=== PATIENT | female | born 1950 | race Caucasian/White ===

== ENCOUNTER 2019-07-24 21:56 | Emergency (ER) | payer OTHER ==
[2019-07-24] MEDS ORDERED: HYDROCORTISONE ACETATE 25MG SUPP PR ONE (23:21)
--- NOTE | 2019-07-24 23:40 | EDPHYS ---
Physician Documentation [facility] Name: Rosa Hernadez Age: 68 yrs Sex: Female : 1950 Arrival Date: 07/24/2019 Time: 22:01 Bed 6 Private MD: ED Physician Rashel Haddad HPI: 07/23 23:00 This 68 yrs old Female presents to ER via Ambulatory with complaints of cp Hemorrhoids. 23:00 The patient presents to the emergency department with pain in the rectal area, that is cp moderate. Onset: The symptoms/episode began/occurred this morning. Context: the patient patient reports history of internal hemorrhoids. Associate signs and symptoms: Pertinent negatives: abdominal pain, constipation, diarrhea, fever. The patient has not experienced similar symptoms in the past. Historical: - Allergies: 22:34 NKDA; lp1 - Home Meds: 22:34 lisinopril-hydrochlorothiazide 20-12.5 mg Oral tab 1 tab once daily [Active]; lp1 sertraline 50 mg oral tab 1 tab once daily [Active]; - PMHx: 22:34 Hypertension; lp1 - PSHx: 22:34 hip surgery; lp1 - Immunization history:: Adult Immunizations up to date. - Social history:: Smoking status: Patient denies any tobacco usage or history of. ROS: 23:05 Constitutional: Negative for chills, fever. cp 23:05 Eyes: Negative for injury, pain, redness, and discharge. cp 23:05 ENT: Negative for ear pain, sore throat, difficulty swallowing, difficulty handling secretions. 23:05 Cardiovascular: Negative for chest pain. 23:05 Respiratory: Negative for cough, shortness of breath. 23:05 Abdomen/GI: Positive for rectal pain, Negative for abdominal pain, vomiting, diarrhea, constipation. 23:05 : Negative for urinary symptoms. 23:05 All other systems are negative. Exam: 23:12 Constitutional: The patient appears in no acute distress, alert, awake, well developed, cp well nourished. 23:12 Cardiovascular: Rate: normal. cp 23:12 Respiratory: the patient does not display signs of respiratory distress, Respirations: normal, no use of accessory muscles, labored breathing, is not present. 23:12 Abdomen/GI: Inspection: abdomen appears normal, Palpation: abdomen is soft and non-tender, in all quadrants, Rectal exam: hemorrhoid(s), internal, with inflammation, with pain, prolapsed, the exam is chaperoned by the nurse. Vital Signs: 22:35 BP 109 / 87; Pulse 96; Resp 18; Temp 98.3(O); Pulse Ox 95% on R/A; Weight 92.53 kg (R); lp1 Height 5 ft. 5 in. (165.10 cm); Pain 7/10; 23:56 BP 121 / 68; Pulse 78; Resp 18; Pulse Ox 98% on R/A; ea 22:35 Body Mass Index 33.95 (92.53 kg, 165.10 cm) lp1 MDM: 22:41 Patient medically screened. cp 23:35 Differential diagnosis: hemorrhoids, fissure, abscess, prolapsed rectum. cp 23:38 Data reviewed: vital signs, nurses notes, I have discussed the patient's cp presentation/case with the attending Emergency Department Physician; and as a result, I will discharge patient. 23:38 Counseling: I had a detailed discussion with the patient and/or guardian regarding: the cp historical points, exam findings, and any diagnostic results supporting the discharge/admit diagnosis, the need for outpatient follow up, for definitive care, a general surgeon, to return to the emergency department if symptoms worsen or persist or if there are any questions or concerns that arise at home. 23:38 Response to treatment: the patient's symptoms have markedly improved after treatment, cp and as a result, I will discharge patient. Administered Medications: 23:22 Drug: Anusol-HC 25 mg 25 mg Route: MD; ea 23:57 Follow up: Response: No adverse reaction ea Disposition: 23:50 Chart complete. cp 07/24 03:41 Co-signature as Attending Physician, Rashel Haddad MD. pkl Disposition: 07/24/19 23:39 Discharged to Home. Impression: Other hemorrhoids - prolasped. - Condition is Stable. - Discharge Instructions: High-Fiber Diet, Hemorrhoids, Surgical Procedures for Hemorrhoids. - Prescriptions for Anusol- HC 25 mg Rectal Suppository - insert 1 suppository by RECTAL route every 12 hours As needed; 20 suppository. Miralax 17 gram/dose Oral - take 1 packet by ORAL route once daily dilute powder in 8 ounces of water or juice; 15 packet. - Medication Reconciliation Form, Thank You Letter, Antibiotic Education, Prescription Opioid Use form. - Follow up: Shai Olson MD; When: 07/27/2019; Reason: Recheck today's complaints. - Problem is new. - Symptoms have improved. Signatures: Rashel Haddad MD MD pkl Pena, Laura RN RN lp1 Deni Chu, PA PA Yaneth Martinez RN RN ea Corrections: (The following items were deleted from the chart) 07/23 23:04 23:02 This 68 yrs old Female presents to ER via Ambulatory with complaints of cp Hemorrhoids. cp 07/24 00:04 07/23 23:39 07/24/2019 23:39 Discharged to Home. Impression: Other hemorrhoids - ea prolasped. Condition is Stable. Forms are Medication Reconciliation Form, Thank You Letter, Antibiotic Education, Prescription Opioid Use. Follow up: Shai Olson; When: 07/27/2019; Reason: Recheck today's complaints. Problem is new. Symptoms have improved. cp 07/24 03:42 03:40 : cp cp
--- NOTE | 2019-07-24 23:40 | ER ---
Nurse's Notes [facility] Name: Rosa Hernadez Age: 68 yrs Sex: Female : 1950 Arrival Date: 07/24/2019 Time: 22:01 Bed 6 Private MD: Diagnosis: Other hemorrhoids-prolasped Presentation: 07/23 22:32 Chief complaint: Patient states: External hemorrhoid pain that began this morning; lp1 Attempted using suppositories and creams with no relief; States beginning to bleed. Coronavirus screen: Proceed with normal triage. Ebola Screen: No symptoms or risks identified at this time. Risk Assessment: Do you want to hurt yourself or someone else? Patient reports no desire to harm self or others. Onset of symptoms was July 24, 2019. 22:32 Method Of Arrival: Ambulatory lp1 22:32 Acuity: BERTHA 3 sg 22:35 Initial Sepsis Screen: Does the patient meet any 2 criteria? No. Patient's initial lp1 sepsis screen is negative. Does the patient have a suspected source of infection? No. Patient's initial sepsis screen is negative. Historical: - Allergies: 22:34 NKDA; lp1 - Home Meds: 22:34 lisinopril-hydrochlorothiazide 20-12.5 mg Oral tab 1 tab once daily [Active]; lp1 sertraline 50 mg oral tab 1 tab once daily [Active]; - PMHx: 22:34 Hypertension; lp1 - PSHx: 22:34 hip surgery; lp1 - Immunization history:: Adult Immunizations up to date. - Social history:: Smoking status: Patient denies any tobacco usage or history of. Screenin:34 Abuse screen: Denies threats or abuse. Denies injuries from another. Nutritional lp1 screening: No deficits noted. Tuberculosis screening: No symptoms or risk factors identified. Fall Risk None identified. Assessment: 22:43 General: Appears in no apparent distress. Behavior is appropriate for age. Pain: ea Complains of pain in buttocks. Neuro: Level of Consciousness is awake, alert, obeys commands, Oriented to person, place, time, situation. Cardiovascular: Patient's skin is warm and dry. Respiratory: Airway is patent Respiratory effort is even, unlabored, Respiratory pattern is regular, symmetrical. GI: Reports hemorrhoids. Derm: Skin is pink, warm \T\ dry. 07/24 00:04 Reassessment: Patient and/or family updated on plan of care and expected duration. Pain ea level reassessed. Patient is alert, oriented x 3, equal unlabored respirations, skin warm/dry/pink. Discharge instruction given to patient, verbalized the understanding of instruction. Pt left ED ambulatory tolerating well. Vital Signs: 07/23 22:35 BP 109 / 87; Pulse 96; Resp 18; Temp 98.3(O); Pulse Ox 95% on R/A; Weight 92.53 kg (R); lp1 Height 5 ft. 5 in. (165.10 cm); Pain 7/10; 23:56 BP 121 / 68; Pulse 78; Resp 18; Pulse Ox 98% on R/A; ea 22:35 Body Mass Index 33.95 (92.53 kg, 165.10 cm) lp1 ED Course: 22:01 Patient arrived in ED. bp1 22:33 Triage completed. lp1 22:33 Arm band placed on right wrist. lp1 22:39 Yaneth Lyon RN is Primary Nurse. ea 22:39 Deni Chu PA is PHCP. cp 22:39 Rashel Haddad MD is Attending Physician. cp 22:41 Patient has correct armband on for positive identification. Bed in low position. Call ea light in reach. Side rails up X2. 23:38 Shai Olson MD is Referral Physician. cp 23:57 No provider procedures requiring assistance completed. Patient did not have IV access ea during this emergency room visit. Administered Medications: 23:22 Drug: Anusol-HC 25 mg 25 mg Route: KS; ea 23:57 Follow up: Response: No adverse reaction ea Outcome: 23:39 Discharge ordered by . cp 07/24 00:03 Discharged to home ambulatory. ea Condition: stable Discharge instructions given to patient, Instructed on discharge instructions, follow up and referral plans. medication usage, Demonstrated understanding of instructions, follow-up care, medications, Prescriptions given X 2. 00:04 Patient left the ED. ea Signatures: Kristopher Barroso RN RN Tammi Fox RN RN lp1 Deni Chu PA PA cp Antunez, Elena, RN RN ea Paniauga, Brittany bp1 Corrections: (The following items were deleted from the chart) 07/23 23:02 22:32 Acuity: BERTHA 4 lp1 sg
== END 2019-07-25 00:04 | disposition home or self-care (01) ==
LOC: ER 21:56
DX: K64.8 Other hemorrhoids (principal); I10 Essential (primary) hypertension
CPT/HCPCS: 99283

== ENCOUNTER 2019-08-17 07:36 | Day surgery (SDC) | payer OTHER ==
[2019-08-17] MEDS ORDERED: Ringers Lactate 1,000 ML IV ONE (08:37)
[2019-08-17] MEDS ORDERED: CEFAZOLIN/SWI 2gm 2 GM/20 ML SYR ONE (08:37)
[2019-08-17] MEDS ORDERED: propofoL 200 MG/20 ML VIAL IV ONE (08:54)
[2019-08-17] MEDS ORDERED: MIDAZOLAM HCL 2 MG/2 ML INJ ONE (08:55)
[2019-08-17] MEDS ORDERED: dexAMETHasone 10 MG/ML VIAL ONE (08:55)
[2019-08-17] MEDS ORDERED: LIDOCAINE 2% MPF 5 ML VIAL ONE (08:55)
[2019-08-17] MEDS ORDERED: FENTANYL CITR 250 MCG/5 ML ONE ×2 (08:56)
[2019-08-17] MEDS ORDERED: FENTANYL CITR 100 MCG/2 ML ONE (08:59)
[2019-08-17] MEDS ORDERED: BUPIVACA 0.25%/EPI 0.0005% MDV 50 ML VIAL ONE (10:15)
[2019-08-17] MEDS ORDERED: NS 0.9% VIAL 10 ML ONE (10:35)
[2019-08-17] MEDS ORDERED: Phenylephrine HCl 10 MG/ML 1 ML VIAL ONE (10:35)
[2019-08-17] MEDS ORDERED: EPHEDRINE SULF 50 MG/ML VIAL ONE (10:48)
--- NOTE | 2019-08-17 10:59 | P.OP ---
Preoperative diagnosis: Large Thrombosed External Anal Hemorrhoids Postoperative diagnosis: Large Thrombosed External Anal Hemorrhoids Primary procedure: Exam under Anesthesia Secondary procedure: Excision of Large Thrombosed External Anal Hemorrhoids Anesthesia: GETA + Local Estimated blood loss: <10cc Specimen: hemorrhoidal tissue Findings: Large Thrombosed External Anal Hemorrhoids, RIGHT and LEFT Pillars Complications: None Transferred to: Recovery Room Condition: Good
[2019-08-17] MEDS ORDERED: dexAMETHasone 4 MG/ML VIAL ONE (11:01)
[2019-08-17] MEDS ORDERED: ONDANSETRON 4 MG/2 ML VIAL ONE (11:01)
[2019-08-17] MEDS ORDERED: KETOROLAC 30 MG/ML INJ ONE (11:07)
[2019-08-17] MEDS ORDERED: HYDROCODONE/APAP 7.5/325 MG TAB PO ONE (12:12)
[2019-08-17] MEDS ORDERED: HYDROCODONE/APAP 7.5/325 MG TAB ONE (12:18)
[2019-08-17 12:55] VITALS: BP 115/52; TEMP 98.4; O2SAT 95
--- NOTE | 2019-08-17 13:30 | OP ---
Date of Procedure: 08/17/2019 Surgeon: Shai Olson MD, Preoperative Diagnosis: Large thrombosed external anal hemorrhoids. Postoperative Diagnosis: Large thrombosed external anal hemorrhoids. Procedures Performed: 1.Exam under anesthesia. 2.Excision of large thrombosed external anal hemorrhoids in both right and left pillars. Anesthesia: General endotracheal plus local with 0.25% Marcaine with epinephrine. Estimated Blood Loss: Less than 10 mL. Specimens: Hemorrhoidal tissue x2. Findings: Two large thrombosed external anal hemorrhoids on the right and left pillars respectively. Disposition: Transferred to recovery room in good condition. Procedure In Detail: After informed was obtained, patient was brought to the operating room and prep ped and draped in the usual sterile fashion in lithotomy position. After adequate anesthesia was ach ieved, I inspected the area of the external anus and performed a digital rectal examination followed by subsequent anoscopy. After anoscopy and exam under anesthesia was performed internal anal hemorrh oids were appreciated and 2 large external anal hemorrhoids were appreciated. These were quite large , creating small skin bridges between them. The left pillar and right pillar were both involved. Th sarthak were scored in a triangular fashion down to the vascular pedicle and careful dissection was perfo rmed to tease the muscle off the hemorrhoid and to spare the muscle as much as possible. At this poi nt the LigaSure device was used to ligate the hemorrhoids without evidence of complication with good hemostasis in both the right and left pillars, only 2 large hemorrhoids were taken. I opted not to c ontinue taking additional hemorrhoids as the patient has circumferential hemorrhoids and stenosis cou ld be a real concern here, as such these were very large external anal hemorrhoids and we will contin ue with nonoperative management in the perioperative period and as such I opted to only take these 2 large external anal hemorrhoids. At this point the area was cleansed, irrigated, and a Gel-Foam was hydrated and placed into the anal canal using an anoscope and I then proceeded to irrigate the personal computer network engineer al anal mucosa and skin and hemostasis was easily achieved with minimal electrocautery in this area. The area was cleansed once again with triple antibiotic placed over and a sterile dressing placed ov er top. Patient tolerated the procedure well without evidence of complication and transferred to PAC U in good condition. All counts were correct at the end of the case. TK/ADRIEL Voice ID: [id number] Report ID: [id number]
== END 2019-08-17 12:50 | disposition home or self-care (01) ==
LOC: OR 07:36
PROVIDERS: ATTEND Surgery
PROC: 06BY4ZC Excision of Hemorrhoidal Plexus, Percutaneous Endoscopic Approach (ICD-10-PCS; principal; 2019-08-17 09:15)
DX: K64.5 Perianal venous thrombosis (principal); Z11.59 Encounter for screening for other viral diseases
CPT/HCPCS: 46260; 88304; 46320; J2704; J2370; J2250; J3010 ×3; J0690; J7120; J2405; J1100

== ENCOUNTER 2022-08-07 07:41 | Emergency (ER) | payer OTHER ==
--- OUTSIDE RECORDS SUMMARY | 2022-08-07 07:45 | XMS REPORT | Continuity of Care Document ---
:1950 [facility] t Address [address] [facility] [address] [place] [address] Care Team Providers Name Role Phone Lorenzo Harrington Attending Clinician Unavailable UNDEFINED Admitting Clinician Unavailable Payers Payer Name Policy Type Policy Number Effective Date Expiration Date S ource Problems This patient has no known problems. Allergies, Adverse Reactions, Alerts Allergy Allergy Status Severity Reaction(s) Onset Inactive Treating Comm ents Source Name Type Date Date Clinician No Known DA Active [facility]20 [place] [facility] No Known DA Active [facility] 7-23 [place] 00:00: [address] Medications This patient has no known medications. Procedures This patient has no known procedures. Encounters Start End Encounter Admission Attending Care Care Encounter Source Date/Time Date/Time Type Type Clinicians Facility Department ID 2020-06-24 Inpatient DOROTHY Crawford GISSELLETO [id number] [facility] 10:56:47 [facility] [place] [facility] 2020-06-27 2020-06-27 Outpatient GISSELLE HarringtonCL LABO [id number] [facility] 16:12:00 16:12:00 Lorenzo 25 [facility] Results Test Description Test Time Test Comments Results Result Comments Source Novel Coronavirus 2019 Inhouse 2020-06-28 10:16:00 Test Item Value Reference Range Interpretation Comme nts Novel Coronavirus 2018 Negative Negative Posit korey results are indicative of the Inhouse (test code = presenc e klDMCT-YwD-4 RNA, clinical COVNONPUI) correlation wit h patient historyand other diagnosti c information is necessary to de terminepatient infection status. Positiv e results do not rule outbacterial in fection or co-infection with other viru ses. Negative results do not preclude SA RS-CoV-2 infection andshould not b e used as the sole basis for patient man agementdecisions. Negative result s must be combined with otherclinical o bservations, patient history, and ep idemiologicalinformation. Detection of SA RS-CoV-2 RNA may be affected bysamp le collection methods, storage conditi ons, and/or stageof infection. Kari l RNA mutations, vaccinations, a ntiviraltherapeutics, antibiotics, ch emotherapeutic orimmunosuppres ganga drugs have not been evaluated for e ffectson detection. Results are for the identification of SARS-CoV-2 RNA usingthe [employer]ure000 System under th e FDA Emergency UseAuthorizatio n. The testing is performed by caity jamesonnmorrisrained in the procedures for the [employer]000 moleculardiagno stic SARS-CoV-2 assay in vitro. Novel Coronavirus 2018 [id number] 10:16:00 Test Item Value Reference Range Interpretation Comments Novel Coronavirus Negative Negative Positive r esults are 2019 Inhouse (test indicativ e of the presence code = COVNONPUI) ofSARS-CoV -2 RNA, clinical correlation wit h patient historyand othe r diagnostic info rmation is necessary to determinepatien t infection status. Positiv e results do not rule out bacterial infection or co -infection with other viru ses. Negative result s do not preclude SARS-C oV-2 infection andsh ould not be used as the olimpia e basis for patient managementdecis ions. Negative result s must be combined with otherclinical observations, p atient history, and epidemiological information . Detection of SARS-CoV-2 RNA may be affe cted bysample collec tion methods, storag e conditions, and /or stageof infection. Kari l RNA mutations, vacc inations, antiviraltherap eutics, antibiotics, chemotherapeuti c orimmunosuppres ganga drugs have not been e valuated for effectson d etection. Results are for the identification of SARS-CoV-2 RNA usingthe [employer] M2000 Sy stem under the FDA Emergen cy UseAuthorizatio n. The testing is perf ormed by louisa bloom in the procedures for the [employer] M2000 molecular diagnostic SARS-CoV-2 jose ja y in vitro. Notes Date/Time Note Provider Source 2020-07-05 21:01:00-00:00 [id number] [facility] [address] [place] [address] PATIENT NAME: VIRGINIA WONG ADMIT DATE: 07/05/20 ACCOUNT NO: [id number] ROOM NO: AGE: 69 REPORT TYPE: OPERATIVE REPORT SEX: F ADMITTING PHYSICIAN: ATTENDING PHYSICIAN:Lorenzo Harrington MD OPERATION DATE: 07/05/2020 PREOPERATIVE DIAGNOSES: 1. Severe bunion deformity, right foot. 2. Bunionette deformity, right foot. 3. Metatarsalgia, right foot. 4. Right second hammertoe deformity, right foot. POSTOPERATIVE DIAGNOSES: 1. Severe bunion deformity, right foot. 2. Bunionette deformity, right foot. 3. Metatarsalgia, right foot. 4. Right second hammertoe deformity, right foot. PROCEDURES PERFORMED: 1. Bunion correction with metatarsophalangeal kelly int arthrodesis. 2. Right second metatarsal osteotomy. 3. Right second hammertoe correction with proxim al interphalangeal arthroplasty, extensor tendon lengthening, and m etatarsophalangeal joint capsulotomy and metallic pinning. 4. Bunionette correction with partial fifth meta tarsal head excision. SURGEON: Lorenzo Harrington MD [employer]IOR [employer]SE ARCHITECT: Walter Rios OPA-C/LSA ANESTHESIA: LMA and local INDICATIONS: Ms. Wong is a 69-year-ol d female with a history of progressive right forefoot pain and deformity. She is having increasing difficulty with closed end shoes. She was evaluated in clinic. Conchis warren discussed the findings with the patient. We discussed the options of treatme nt with her. We discussed surgery with the patient. We discussed the risks and benefits of surgery. She understood the risks and benefits and desired to go forward. DESCRIPTION OF PROCEDURE: After informed consent was obtained, the patient was brought back to main operating room and underwen t laryngeal mask anesthetic. Once the anesthesia was assu red, a calf tourniquet was applied and preset at 250 mmHg. The patient received 2 grams of ce fazolin. The right lower extremity was then prepped and draped free. The foot, ankle, and leg wer e then exsanguinated with an Esmarch bandage and the PATIENT NAME: VIRGINIA WONG ACCOUN T #: [id number] tourniquet was inflated to 250 mmHg. The skin wa s incised over the lateral aspect of the foot and dissection was carried do wn. We exposed the capsule, then incised the capsule along the midline and p erformed a subperiosteal dissection to expose the fifth metatarsal head a s well as the joint. We then resected the fifth metatarsa l head prominence laterally as well as dorsally. We verified the resection under fluoroscopic imagin g. We then irrigated out the wound with copious amounts of normal saline. We then closed the capsule while taking out the laxity with 2-0 Vicryl sutures. T he wound was irrigated out again and the skin was closed with 4-0 Prolene. We then directed our attention to the second toe . We made an elliptical incision over the dorsal aspect of the PIP joint , excising the skin and the extensor mechanism. The collateral ligaments wer e then released. We resected the distal portion of the proximal phalanx and c uretted off the cartilage off the middle phalanx. We then placed a 0.54 nonthr eaded Steinmann pin antegrade out the tip of the toe and then retrograde acros s the arthroplasty site. The toe actually laid in a fairly good posit ion, but given the amount of deformity that was present, we chose to make an incision o cosme the dorsal aspect of the second metatarsal and metatarsophalangeal joint. Dissection was carried down. Hemostasis was achieved. We then performed a Z-lengthening of the long extensor tendon and a complete tenotomy of the short exte nsor tendon. A dorsal capsulotomy was performed and at this point, the toe did lay in a better position. However, once again, given the patient 's preoperative plantar foot pain, we chose to perform a Sharlene-type me tatarsal osteotomy with an oscillating saw. We allowed the metatarsal shortening. We al so took out a small wafer of bone in order to allow it to elevate. We then fi xed it with 2 Synthes 2.0 screws from the mini fragment set. We had good f ixation. We then resected the dorsal prominence such that there was no evidence of impingement. We then chose to place the Steinmann pin across the metatarsop halangeal joint into the metatarsal shaft. We verified this under fluoros copic imaging. The clinical alignment of the toe looked good. We then bent t he pin and cut it. We then irrigated out the wound with copious amounts of normal saline. We then repaired the extensor mechanism in its lengthened position with sutures of 4-0 PDS. The skin was reapproximated with 4-0 PDS and finally closed with 4-0 Prolene. We then directed our attention to the gr eat toe. We made a dorsal incision and dissection was carried down. We then split the e xtensor mechanism just medial to the extensor tendon and incised the dorsal ca psule and the periosteum to expose the metatarsophalangeal joint. We released the collateral ligaments and exposed the joint. We did resect the bunion defo rmity parallel to the shaft. We then plantarflexed the toe and then placed a guidewire into the metatarsal shaft and then utilized a cup reamer to remove the articular cartilage and get down to subchondral bone on the metatarsal head. We utilized a rongeur to remove additional cartilage, but then drilled th e subchondral plate to get bleeding vascular channels. On the proximal phal anx, we utilized a curette as well as a rongeur to remove the remaining articu lar cartilage and then also drilled the subchondral plate here. Thro ugh a small stab incision, we placed a guidewire from the Arthrex M TP fusion set through the proximal phalanx into the metatarsal head and shaft while holding the toe in an anatomic position. We verified the position of the toe under fluoroscopic imaging as well as clinical alignment against a flat surface. The al ignment looked good. We then exchanged the guidewire for a 3.0 cannulated screw and had good fixation. We then fashioned a standard Synthes MTP fusion plate ov er the dorsal aspect of the joint utilizing a combination of locking and nonlocking technique. We had good PATIENT NAME: VIRGINIA WONG ANNELISE ACCOUN T #: [id number] stability and good position of the plate as well as the toe. We irrigated out the wound with copious amounts of normal saline. We then repaired the extensor mechanism with a running suture of 4-0 PDS. The skin was reapproximated with 4-0 PDS and finally closed w ith 4-0 Prolene. A sterile dry compressive dressing was applied. The tourniquet was deflated after a pproximately 84 minutes. We performed an ankle block and local infiltration with a total of 30 mL of 0.5% bupivacaine plain. A well-padded posterior and U splint was applied. The patient was awakened, extubated, and [facility] in stable condition. She tolerated the procedure we ll. There were no apparent complications. The above procedure required an credentialing assistant for positioning the patient, prepping the patient, and holding the retractors to provi de adequate exposure for the procedure. This allowed the surgeon to have both hands free to perform the surgery itself. Retraction for exposure and visu alization, and stabilization of the extremity are vital to the procedure such that it will be completed in an accurate, timely, and safe manner. This is no t possible without the aid of an credentialing assistant. Dr. Harrington is not part of any r esidency or fellowship training program, and therefore requires the participation of credentialing assistant listed above for this procedure. ESTIMATED BLOOD LOSS: Less than 25 mL. Dictated By: Lorenzo Harrington MD WT: OP:AYSHA/LARA/ALYX Conf#: [id number]/DID#: [id number] Authenticated and Edited by Lorenzo davis MD On 07/07/20 10:58:56 AM Electronically Signed by Lorenzo Harrington MD o n 07/07/20 at 1116 PATIENT NAME: VIRGINIA WONG ACCOUN T #: [id number] 2020-06-27 15:24:00-00:00 [id number] [place] [id number] PATIENT NAME: VIRGINIA WONG ADMIT DATE: ACCOUNT NO: [id number] ROOM NO: AGE: 69 REPORT TYPE: ELECTROCARDIOGRAM SEX: F ADMITTING PHYSICIAN: ATTENDING PHYSICIAN:Lorenzo Harrington MD Order: [id number] Test Reason : PRE-OP CLEARANCE HTN Test Date/Time Stamp: SatJun 27 2020 15:24:34 Blood Pressure : / mmHG Vent. Rate : 070 BPM Atrial Rate : 070 BPM P-R Int : 142 ms QRS Dur : 082 ms QT Int : 384 ms P-R-T Axes : 055 -08 045 degree s QTc Int : 414 ms Normal sinus rhythm Normal ECG Confirmed by MICHEAL FERNANDEZ MD ([id number]) on 06/30/2020 1:22:38 PM Referred By: Lorenzo Harrington Confirmed by:MICHEAL FERNANDEZ MD Electronically Signed by Micheal Fernandez MD on 06/16 08/05 at 1322 PATIENT NAME: VIRGINIA WONG ACCOUN T #: [id number]
[2022-08-07 08:36] LABS: SARS-CoV-2 Antigen Rapid Res Negative (Negative)
--- NOTE | 2022-08-07 08:41 | RAD REPORT ---
EXAM DESCRIPTION: RAD - Chest Pa And Lat (2 Views) - 08/07/2022 8:07 am CLINICAL HISTORY: COUGH Chest pain. COMPARISON: Abdomen 1 View (KUB) dated 08/07/2019; Abdomen 1 View (KUB) dated 07/30/2018; Abdomen 1 Vi ew (KUB) dated 08/13/2017; Abdomen 1 View (KUB) dated 08/15/2016 TECHNIQUE: PA and lateral views of the chest were obtained. FINDINGS: The lungs are hyperexpanded compatible with COPD. The heart is upper limit of normal in si ze. No fracture or aggressive bony process. IMPRESSION: COPD without acute process identified. The USPSTF recommends annual screening for lung cancer with low-dose CT (LDCT) in adults aged 50 to 80 years who have a 20 pack-year smoking history and currently smoke or have quit within the past 15 years.
--- NOTE | 2022-08-07 08:45 | EDPHYS ---
Physician Documentation [facility] Name: Rosa Hernadez Age: 71 yrs Sex: Female : 1950 Arrival Date: 08/07/2022 Time: 07:41 Bed 13 Private MD: HARINI Physician Deni Skinner HPI: 08/07 08:27 This 71 yrs old Female presents to ER via Ambulatory with complaints of Sore keyur Throat, Cough. 08:27 The patient presents with sore throat. The patient describes throat pain as constant. keyur Onset: The symptoms/episode began/occurred 3 day(s) ago. Severity of symptoms: At their worst the symptoms were mild, in the emergency department the symptoms are unchanged. Modifying factors: The symptoms are alleviated by nothing, the symptoms are aggravated by nothing. Associated signs and symptoms: Pertinent positives: cough, fever, flu-like symptoms, arthralgias. The patient has experienced similar episodes in the past, several times. Historical: - Allergies: 08:03 NKDA; ld1 - Home Meds: 08:03 lisinopril-hydrochlorothiazide 20-12.5 mg Oral tab 1 tab once daily [Active]; ld1 sertraline 50 mg Oral tab 1 tab once daily [Active]; - PMHx: 08:03 Hypertension; ld1 - PSHx: 08:03 None; ld1 - Immunization history:: Adult Immunizations up to date, Client reports receiving the 2nd dose of the Covid vaccine. - Social history:: Smoking status: Patient denies any tobacco usage or history of. Patient/guardian denies using alcohol. ROS: 08:28 Constitutional: Negative for fever, chills, and weight loss, Eyes: Negative for injury, keyur pain, redness, and discharge, Neck: Negative for injury, pain, and swelling, Cardiovascular: Negative for chest pain, palpitations, and edema, Abdomen/GI: Negative for abdominal pain, nausea, vomiting, diarrhea, and constipation, Back: Negative for injury and pain, : Negative for injury, bleeding, discharge, and swelling, MS/Extremity: Negative for injury and deformity, Skin: Negative for injury, rash, and discoloration, Neuro: Negative for headache, weakness, numbness, tingling, and seizure, Psych: Negative for depression, anxiety, suicide ideation, homicidal ideation, and hallucinations, Allergy/Immunology: Negative for hives, rash, and allergies, Endocrine: Negative for neck swelling, polydipsia, polyuria, polyphagia, and marked weight changes. 08:28 ENT: Positive for rhinorrhea, sinus congestion, sore throat. 08:28 Respiratory: Positive for cough, with no reported sputum. Exam: 08:28 Constitutional: This is a well developed, well nourished patient who is awake, alert, keyur and in no acute distress. Head/Face: Normocephalic, atraumatic. Eyes: Pupils equal round and reactive to light, extra-ocular motions intact. Lids and lashes normal. Conjunctiva and sclera are non-icteric and not injected. Cornea within normal limits. Periorbital areas with no swelling, redness, or edema. ENT: Nares patent. No nasal discharge, no septal abnormalities noted. Tympanic membranes are normal and external auditory canals are clear. Oropharynx with no redness, swelling, or masses, exudates, or evidence of obstruction, uvula midline. Mucous membranes moist. Neck: Trachea midline, no thyromegaly or masses palpated, and no cervical lymphadenopathy. Supple, full range of motion without nuchal rigidity, or vertebral point tenderness. No Meningismus. Chest/axilla: Normal chest wall appearance and motion. Nontender with no deformity. No lesions are appreciated. Cardiovascular: Regular rate and rhythm with a normal S1 and S2. No gallops, murmurs, or rubs. Normal PMI, no JVD. No pulse deficits. Respiratory: Lungs have equal breath sounds bilaterally, clear to auscultation and percussion. No rales, rhonchi or wheezes noted. No increased work of breathing, no retractions or nasal flaring. Abdomen/GI: Soft, non-tender, with normal bowel sounds. No distension or tympany. No guarding or rebound. No evidence of tenderness throughout. Back: No spinal tenderness. No costovertebral tenderness. Full range of motion. Female : Normal external genitalia. Skin: Warm, dry with normal turgor. Normal color with no rashes, no lesions, and no evidence of cellulitis. MS/ Extremity: Pulses equal, no cyanosis. Neurovascular intact. Full, normal range of motion. Neuro: Awake and alert, GCS 15, oriented to person, place, time, and situation. Cranial nerves II-XII grossly intact. Motor strength 5/5 in all extremities. Sensory grossly intact. Cerebellar exam normal. Normal gait. Psych: Awake, alert, with orientation to person, place and time. Behavior, mood, and affect are within normal limits. 08:28 Musculoskeletal/extremity: DVT Exam: No signs of deep vein thrombosis. no pain, no swelling, no tenderness, negative Homans' sign noted on exam, no appreciated bluish discoloration, no erythema, no increased warmth. Vital Signs: 08:03 BP 132 / 74; Pulse 92; Resp 18; Temp 98.4(O); Pulse Ox 96% on R/A; Weight 88 kg; Height ld1 5 ft. 4 in. ; Pain 0/10; 08:03 Body Mass Index 33.30 (88.00 kg, 162.56 cm) ld1 08:03 Pain Scale: Adult ld1 MDM: 07:45 Patient medically screened. [facility] 08:29 Antibiotic administration: The patient is discharged and will get outpatient [facility] antibiotics, Zithromax. Differential Diagnosis: Bronchitis Influenza Upper Respiratory Infection Sinusitis Pharyngitis Otitis Media Viral Syndrome Pneumonia. Data reviewed: vital signs, nurses notes, lab test result(s), radiologic studies, plain films. Consideration of Admission/Observation Escalation of care including admission/observation considered. I considered the following discharge prescriptions or medication management in the emergency department Medications were administered in the Emergency Department. See MAR. Test considered but Not performed: Labs: NO LABS. Care significantly affected by the following chronic conditions: Hypertension. Counseling: I had a detailed discussion with the patient and/or guardian regarding: the historical points, exam findings, and any diagnostic results supporting the discharge/admit diagnosis, lab results, the need for outpatient follow up, for definitive care, a family practitioner. 08/07 07:45 Order name: Strep [facility] 08/07 07:45 Order name: SARS RAPID; Complete Time: 08:44 [facility] 08/07 07:45 Order name: Flu; Complete Time: 08:44 [facility] 08/07 08:24 Order name: Throat Culture [facility] 08/07 07:45 Order name: Chest Pa And Lat (2 Views) XRAY; Complete Time: 08:44 [facility] 08/07 08:08 Order name: Labs - recollect needed: recollect covid, use rapid swab; Complete Time: bd 08:20 Administered Medications: 09:22 Drug: AZITHromycin PO 500 mg Route: PO; ld1 Disposition Summary: 08/07/22 08:45 Discharge Ordered Location: Home [facility] Problem: new [facility] Symptoms: have improved [facility] Condition: Stable [facility] Diagnosis - Acute upper respiratory infection, unspecified keyur - Cough keyur - Fever, unspecified keyur Followup: [facility] - With: Private Physician - When: 2 - 3 days - Reason: Recheck today's complaints, Continuance of care, Re-evaluation by your physician Discharge Instructions: - Discharge Summary Sheet keyur - Fever, Adult keyur - Upper Respiratory Infection, Adult keyur - Cool Mist Vaporizer keyur - Upper Respiratory Infection, Adult, Yici-uf-Gwcb keyur - Cough, Adult, Sekq-wi-Mfuj keyur - Cough, Adult [facility] Forms: - Medication Reconciliation Form [facility] - Thank You Letter [facility] - Antibiotic Education [facility] - Prescription Opioid Use [facility] Prescriptions: - Tessalon Perles 100 mg Oral Capsule - take 2 capsule by ORAL route every 8 hours As needed; 30 capsule; Refills: 0, [facility] Product Selection Permitted - Medrol (Rl) 4 mg Oral Tablets, Dose Pack - take 1 tablet by ORAL route as directed - follow package instructions; 1 [facility] packet; Refills: 0, Product Selection Permitted - Zithromax 500 mg Oral Tablet - take 1 tablet by ORAL route once daily for 5 days; 5 tablet; Refills: 0, [facility] Product Selection Permitted Signatures: Dispatcher [employer] Gale Mark Corey, MD MD cha Sims, Lauren RN RN ld1
--- NOTE | 2022-08-07 08:45 | ER ---
Nurse's Notes [facility] Name: Rosa Hernadez Age: 71 yrs Sex: Female : 1950 Arrival Date: 08/07/2022 Time: 07:41 Bed 13 Private MD: Diagnosis: Acute upper respiratory infection, unspecified;Cough;Fever, unspecified Presentation: 08/07 08:03 Chief complaint: Patient states: Headache, sore throat, cough X 2 days. Coronavirus ld1 screen: At this time, the client does not indicate any symptoms associated with coronavirus-19. Ebola Screen: No symptoms or risks identified at this time. Initial Sepsis Screen: Does the patient meet any 2 criteria? No. Patient's initial sepsis screen is negative. Does the patient have a suspected source of infection? No. Patient's initial sepsis screen is negative. Risk Assessment: Do you want to hurt yourself or someone else? Patient reports no desire to harm self or others. Onset of symptoms was August 07, 2022. 08:03 Method Of Arrival: Ambulatory ld1 08:03 Acuity: BERTHA 4 ld1 Triage Assessment: 08:03 General: Appears in no apparent distress. comfortable, Behavior is calm, cooperative, ld1 appropriate for age. Pain: Denies pain. EENT: No signs and/or symptoms were reported regarding the EENT system. EENT: Reports sore throat. Neuro: Level of Consciousness is awake, alert, obeys commands, Oriented to person, place, time, situation. Cardiovascular: Capillary refill < 3 seconds Patient's skin is warm and dry. Respiratory: Airway is patent Respiratory effort is even, unlabored. GI: Abdomen is flat, non-distended. : No signs and/or symptoms were reported regarding the genitourinary system. Derm: No signs and/or symptoms reported regarding the dermatologic system. Musculoskeletal: No signs and/or symptoms reported regarding the musculoskeletal system. Historical: - Allergies: 08:03 NKDA; ld1 - Home Meds: 08:03 lisinopril-hydrochlorothiazide 20-12.5 mg Oral tab 1 tab once daily [Active]; ld1 sertraline 50 mg Oral tab 1 tab once daily [Active]; - PMHx: 08:03 Hypertension; ld1 - PSHx: 08:03 None; ld1 - Immunization history:: Adult Immunizations up to date, Client reports receiving the 2nd dose of the Covid vaccine. - Social history:: Smoking status: Patient denies any tobacco usage or history of. Patient/guardian denies using alcohol. Screenin:05 [facility] ED Fall Risk Assessment (Adult) History of falling in the last 3 months, ld1 including since admission No falls in past 3 months (0 pts). Abuse screen: Denies threats or abuse. Denies injuries from another. Nutritional screening: No deficits noted. Tuberculosis screening: No symptoms or risk factors identified. Assessment: 08:05 Reassessment: See triage assessment. ld1 08:05 Respiratory: Airway is patent Respiratory effort is even, unlabored, Breath sounds are ld1 clear bilaterally. 09:22 Reassessment: No changes from previously documented assessment. Patient and/or family ld1 updated on plan of care and expected duration. Pain level reassessed. Patient is alert, oriented x 3, equal unlabored respirations, skin warm/dry/pink. ERP at bedside discussing results. Patient denies pain at this time. Vital Signs: 08:03 BP 132 / 74; Pulse 92; Resp 18; Temp 98.4(O); Pulse Ox 96% on R/A; Weight 88 kg; Height ld1 5 ft. 4 in. ; Pain 0/10; 08:03 Body Mass Index 33.30 (88.00 kg, 162.56 cm) ld1 08:03 Pain Scale: Adult ld1 ED Course: 07:43 Patient arrived in ED. rg4 07:45 Deni Skinner MD is Attending Physician. keyur 07:54 Pamela Wall, ARJUN is Primary Nurse. ld1 08:03 Triage completed. ld1 08:03 Arm band placed on right wrist. ld1 08:05 Patient has correct armband on for positive identification. Placed in gown. Bed in low ld1 position. Call light in reach. Side rails up X2. bus monitor on. Pulse ox on. NIBP on. Door closed. Noise minimized. Warm blanket given. 08:05 No provider procedures requiring assistance completed. Patient did not have IV access ld1 during this emergency room visit. 08:08 Chest Pa And Lat (2 Views) XRAY In Process Unspecified. EDMS 08:13 Flu Sent. ld1 08:13 SARS RAPID Sent. ld1 08:13 Strep Sent. ld1 Administered Medications: : Drug: AZITHromycin PO 500 mg Route: PO; ld1 Medication: 08:05 VIS not applicable for this client. ld1 Outcome: 08:45 Discharge ordered by . keyur :22 Discharged to home ambulatory, with family. ld1 09:22 Condition: stable :22 Discharge instructions given to patient, Instructed on discharge instructions, follow up and referral plans. medication usage, Demonstrated understanding of instructions, follow-up care, medications, Prescriptions given X 3. 09:23 Patient left the ED. ld1 Signatures: Dispatcher [employer] EDNJ Deni Skinner MD MD cha Garcia, Rubi rg4 Pamela Wall, ARJUN RN ld1
[2022-08-07] MEDS ORDERED: AZITHROMYCIN 250 MG TAB ONE (09:25)
[2022-08-07 09:28] VITALS: BP 132/74; TEMP 98.4; O2SAT 96
== END 2022-08-07 09:23 | disposition home or self-care (01) ==
LOC: ER 07:41
DX: J06.9 Acute upper respiratory infection, unspecified (principal); R50.9 Fever, unspecified; Z20.822 Contact with and (suspected) exposure to COVID-19; I10 Essential (primary) hypertension
CPT/HCPCS: 36415; 71046; 87070; 87081; 87804; 87811; 99284